=== PATIENT | female | born 2005 | race Caucasian/White ===

== ENCOUNTER 2024-04-23 22:00 | Inpatient (IN) | payer MEDICAID ==
[2024-04-23 22:18] VITALS: BMI 28.3
[2024-04-23] MEDS ORDERED: Lidocaine 1% (PF) 30 ML VIAL SC PRN (22:24)
[2024-04-23] MEDS ORDERED: Promethazine HCl 25 MG/ML VIAL IM PRN (22:24)
[2024-04-23] MEDS ORDERED: hydrALAZINE 20 MG/ML VIAL SLOW IVP PRN (22:24)
[2024-04-23] MEDS ORDERED: fentaNYL 50 mcg/mL 1 mL Vial SLOW IVP PRN (22:24)
[2024-04-23] MEDS ORDERED: Ondansetron PF 4 MG/2 ML Vial IVP PRN (22:24)
[2024-04-23] MEDS ORDERED: Acetaminophen 500 MG TAB PO PRN (22:24)
[2024-04-23] MEDS ORDERED: Oxytocin 30 units/NS 500 ML 500 ML IV SCH (22:30)
[2024-04-23 23:17] LABS: Hematocrit 25.9 % (34.9-44.5); Hemoglobin 8.1 g/dL (12.0-15.5); Mean Corpuscular HGB CONC 31.3 g/dL (32.0-36.0); Mean Corpuscular Hemoglobin 23.6 pg (27.0-33.0); Mean Corpuscular Volume 75.5 fL (81.6-98.3); Mean Platelet Volume 9.4 fL (7.4-10.4); Platelet Count 308 10x3/uL (150-450); RBC Distribution Width 18.7 % (11.5-14.5); Red Blood Cell (RBC) Count 3.43 10x6/uL (3.90-5.03); White Blood Cell (WBC) Count 7.5 10x3/uL (3.5-10.5)
[2024-04-23 23:47] LABS: HBsAg Index 0.24 S/CO (0-0.99); Hep B Surf Ag - L&D Non-Reactive S/CO (NonReactive)
[2024-04-23 23:48] LABS: Syphilis Antibody Nonreactive (Nonreactive); Syphilis Antibody Index 0.03 S/CO (<1.00 Non-Reactive)
[2024-04-23] MEDS: Misoprostol 100 MCG TAB VAG SCH (23:50)
[2024-04-24] LABS: Bilirubin Neg (Negative); Blood, Urine Negative (Negative); Clarity Clear (Clear); Glucose, Urine (Dipstick) Normal (Negative); Ketone, Urine Negative (Negative); Leukocyte Negative (Negative); Nitrite Negative (Negative); Protein, Urine (Dipstick) 15 mg/dl (Neg-Trace); Urobilinogen Normal mg/dL (Less than 2)
[2024-04-24 00:11] LABS: Amphetamine Not Detected (NotDetected); Barbiturates Screen Not Detected (NotDetected); Benzodiazepine Screen Not Detected (NotDetected); Cocaine Metabolite Screen Not Detected (NotDetected); Methadone Not Detected (NotDetected); Methamphetamine Not Detected (NotDetected); Opiate Screen Not Detected (NotDetected); Oxycodone Screen Not Detected (NotDetected); Phencyclidine (PCP) Not Detected (NotDetected); THC/Cannabinoid Screen Not Detected (NotDetected); Tricyclic Screen Not Detected (NotDetected)
[2024-04-24 00:14] LABS: Bacteria/HPF 2+ HPF (None Seen); RBC/HPF 0-3 HPF (0-3); Squamous Epithelial 0-3 HPF (0-3); WBC/HPF 0-3 HPF (0-3)
[2024-04-24 07:09] LABS: HIV (1/2) Antibody/Antigen Non-Reactive (NonReactive); HIV 1/2 INDEX 0.04 S/CO (<1.00)
[2024-04-24] MEDS ORDERED: Misoprostol 100 MCG TAB VAG SCH (10:00)
[2024-04-24] MEDS: fentaNYL 50 mcg/mL 1 mL Vial SLOW IVP PRN (16:18)
[2024-04-24] MEDS: Penicillin G Potassium 5 MILL.UNITS in Sodium Chloride 0.9% 100 ML IVPB SCH (16:18)
[2024-04-24] MEDS: fentaNYL/Ropivacaine Epidural 100 ML ONE (18:56)
[2024-04-24] MEDS ORDERED: Lactated Ringer's 500 ML IV PRN (20:17)
[2024-04-24] MEDS ORDERED: Naloxone HCl 0.4 mg/ml Vial IVP PRN ×2 (20:17)
[2024-04-24] MEDS ORDERED: Promethazine HCl 25 MG/ML VIAL IM PRN (20:17)
[2024-04-24] MEDS ORDERED: Moisturizing Cream (Eucerin) 113 GM JAR TOP PRN (20:17)
[2024-04-24] MEDS ORDERED: diphenhydrAMINE 50 MG/ML VIAL IVP PRN (20:17)
[2024-04-24] MEDS ORDERED: Ondansetron PF 4 MG/2 ML Vial IVP PRN (20:17)
[2024-04-24] MEDS ORDERED: Acetaminophen 325 MG TAB PO PRN (20:17)
[2024-04-24] MEDS ORDERED: ePHEDrine Sulfate 50 MG/10 ML VIAL SLOW IVP PRN (20:17)
[2024-04-24] MEDS ORDERED: Communication Order-Pharmacy FS SCH (20:30)
[2024-04-24] MEDS ORDERED: fentaNYL 2 mcg/Ropivacaine 0.2% Epidural 100 ML CADD EPIDURAL SCH (20:30)
[2024-04-24] MEDS: Lactated Ringer's 1,000 ML IV SCH (20:35)
[2024-04-24] MEDS: Penicillin G 2.5 MILL.units 2.5 MILL.UNITS in Premix 1 BAG IVPB SCH (20:35)
[2024-04-24] MEDS: Oxytocin 30 units/NS 500 ML 500 ML IV SCH (23:09)
[2024-04-25] MEDS ORDERED: Bicitra 30 ML UDCUP PO PRN (05:11)
[2024-04-25] MEDS ORDERED: Famotidine/PF 20 mg/2ml Vial SLOW IVP PRN (05:11)
[2024-04-25] MEDS ORDERED: CEFAZOLIN 2 GM in Sodium Chloride 0.9% 100 ML IVPB SCH (05:30)
[2024-04-25] MEDS ORDERED: Azithromycin 500 MG in Sodium Chloride 0.9% 250 ML 250 ML IVPB SCH (05:30)
[2024-04-25] MEDS ORDERED: Simethicone Chewable 80 MG TAB PO PRN (06:18)
[2024-04-25] MEDS ORDERED: Boostrix 0.5 ML (Tdap) VIAL (>/=7 yrs of age) IM ONE (06:18)
[2024-04-25] MEDS ORDERED: Lanolin Ointment 7 GM TUBE TOP PRN (06:18)
[2024-04-25] MEDS ORDERED: diphenhydrAMINE 25 MG CAP PO PRN (06:18)
[2024-04-25] MEDS ORDERED: Zolpidem Tartrate 5 MG TAB PO PRN (06:18)
[2024-04-25] MEDS ORDERED: Misoprostol 200 MCG TAB PR PRN (06:18)
[2024-04-25] MEDS ORDERED: Methylergonovine 0.2 MG/ML VIAL IM PRN (06:18)
[2024-04-25] MEDS ORDERED: hydrALAZINE 20 MG/ML VIAL SLOW IVP PRN (06:18)
[2024-04-25 07:42] LABS: Analyzer IN Cardio CS NICU; Critical Notified Whom: Roman MD; RapidComm Collect By LD RN; pH (Cord, venous) 7.305 (7.250-7.350)
[2024-04-25] MEDS: Azithromycin 500 MG VIAL ONE (07:53)
[2024-04-25] MEDS: Misoprostol 200 MCG TAB ONE (07:53)
[2024-04-25] MEDS: CEFAZOLIN 2 GM VIAL ONE (07:53)
[2024-04-25] MEDS: Carboprost 250 MCG/ML AMP ONE (07:54)
[2024-04-25] MEDS: Morphine PF 10 MG/10 ML VIAL ONE (07:54)
[2024-04-25] MEDS: Methylergonovine 0.2 MG/ML VIAL ONE (07:54)
[2024-04-25] MEDS: Promethazine HCl 25 MG/ML VIAL ONE (07:54)
[2024-04-25] MEDS: Tranexamic Acid 1,000 MG/10 ML VIAL ONE (07:54)
[2024-04-25] MEDS: Ondansetron PF 4 MG/2 ML Vial ONE (07:54)
[2024-04-25] MEDS: fentaNYL 50 mcg/mL 1 mL Vial ONE (07:54)
[2024-04-25] MEDS: Oxytocin 10 UNITS/ML VIAL ONE ×2 (07:54→07:55)
[2024-04-25 08:19] LABS: Hematocrit 24.9 % (34.9-44.5); Hemoglobin 7.7 g/dL (12.0-15.5); Mean Corpuscular HGB CONC 30.9 g/dL (32.0-36.0); Mean Corpuscular Hemoglobin 24.2 pg (27.0-33.0); Mean Corpuscular Volume 78.3 fL (81.6-98.3); Mean Platelet Volume 9.6 fL (7.4-10.4); Platelet Count 277 10x3/uL (150-450); RBC Distribution Width 18.6 % (11.5-14.5); Red Blood Cell (RBC) Count 3.18 10x6/uL (3.90-5.03); White Blood Cell (WBC) Count 25.2 10x3/uL (3.5-10.5)
[2024-04-25 08:23] LABS: MDiff Complete? YES
[2024-04-25 08:54] LABS: Band 3 % (5-11); Lymphocytes 5 % (28-48); Monocytes 8 % (0-4); Neutrophil 84 % (31-61)
[2024-04-25 08:56] LABS: Anisocytosis SLIGHT = 6-15 cells (100X) (0-5/hpf); Hypochromia SLIGHT = 6-15 cells (100X) (0-5/hpf); Microcytosis SLIGHT = 6-15 cells (100X) (0-5/hpf); Platelet Adequacy Comment Appears Adequate; Polychromasia SLIGHT = 2-3 cells (100X) (0-2/hpf)
[2024-04-25] MEDS: Ferrous Sulfate 325 MG TAB PO SCH (09:00)
[2024-04-25] MEDS: Docusate 100 MG CAP PO SCH (09:00)
[2024-04-25] MEDS: Ketorolac Tromethamine 30 MG (1 mL) VIAL IVP SCH ×2 (13:52→20:00)
[2024-04-25] MEDS ORDERED: Bupivacaine HCl 0.5%/Epinephrine 1:200,000/PF 30 ml Vial ONE (15:00)
[2024-04-26 06:30] LABS: #Basophils 0.04 10x3/uL (0.0-0.2); #Eosinphils 0.08 10x3/uL (0.0-0.5); #Monocytes 1.11 10x3/uL (0.0-1.1); #Neutrophils 11.09 10x3/uL (1.5-8.4); %Basophils 0.3 % (0.0-2.0); %Eosinophils 0.6 % (0.0-6.0); %Lymphocytes 11.5 % (18.0-47.0); %Monocytes 7.9 % (0.0-10.0); %Neutrophils 78.4 % (40.0-75.0); Hematocrit 19.3 % (34.9-44.5); Hemoglobin 6.1 g/dL (12.0-15.5); Mean Corpuscular HGB CONC 31.6 g/dL (32.0-36.0); Mean Corpuscular Hemoglobin 24.4 pg (27.0-33.0); Mean Corpuscular Volume 77.2 fL (81.6-98.3); Mean Platelet Volume 8.9 fL (7.4-10.4); Platelet Count 207 10x3/uL (150-450); RBC Distribution Width 18.9 % (11.5-14.5); White Blood Cell (WBC) Count 14.1 10x3/uL (3.5-10.5)
[2024-04-26] MEDS: Ibuprofen 800 MG TAB PO SCH (11:02)
[2024-04-26 20:52] LABS: #Basophils 0.07 10x3/uL (0.0-0.2); #Eosinphils 0.21 10x3/uL (0.0-0.5); #Monocytes 0.78 10x3/uL (0.0-1.1); #Neutrophils 13.28 10x3/uL (1.5-8.4); %Basophils 0.4 % (0.0-2.0); %Eosinophils 1.3 % (0.0-6.0); %Lymphocytes 7.7 % (18.0-47.0); %Monocytes 4.9 % (0.0-10.0); %Neutrophils 84.1 % (40.0-75.0); Hematocrit 26.5 % (34.9-44.5); Hemoglobin 8.5 g/dL (12.0-15.5); Mean Corpuscular HGB CONC 32.1 g/dL (32.0-36.0); Mean Corpuscular Hemoglobin 24.2 pg (27.0-33.0); Mean Corpuscular Volume 75.5 fL (81.6-98.3); Mean Platelet Volume 9.1 fL (7.4-10.4); Platelet Count 298 10x3/uL (150-450); Red Blood Cell (RBC) Count 3.51 10x6/uL (3.90-5.03); White Blood Cell (WBC) Count 15.8 10x3/uL (3.5-10.5)
[2024-04-26] MEDS: HYDROcodone/Acetaminophen 5/325 mg Tablet PO PRN (22:42)
[2024-04-27 07:21] LABS: #Basophils 0.04 10x3/uL (0.0-0.2); #Eosinphils 0.32 10x3/uL (0.0-0.5); #Monocytes 0.88 10x3/uL (0.0-1.1); #Neutrophils 9.53 10x3/uL (1.5-8.4); %Basophils 0.3 % (0.0-2.0); %Eosinophils 2.5 % (0.0-6.0); %Lymphocytes 14.5 % (18.0-47.0); %Monocytes 6.9 % (0.0-10.0); %Neutrophils 74.2 % (40.0-75.0); Hematocrit 23.4 % (34.9-44.5); Hemoglobin 7.3 g/dL (12.0-15.5); Mean Corpuscular HGB CONC 31.2 g/dL (32.0-36.0); Mean Corpuscular Hemoglobin 24.1 pg (27.0-33.0); Mean Corpuscular Volume 77.2 fL (81.6-98.3); Mean Platelet Volume 9.2 fL (7.4-10.4); Platelet Count 239 10x3/uL (150-450); RBC Distribution Width 19.2 % (11.5-14.5); Red Blood Cell (RBC) Count 3.03 10x6/uL (3.90-5.03); White Blood Cell (WBC) Count 12.8 10x3/uL (3.5-10.5)
[2024-04-27 08:38] VITALS: BP 97/51; TEMP 98.5
[2024-04-27 09:56] LABS: #Basophils 0.06 10x3/uL (0.0-0.2); #Eosinphils 0.32 10x3/uL (0.0-0.5); #Monocytes 0.79 10x3/uL (0.0-1.1); #Neutrophils 9.68 10x3/uL (1.5-8.4); %Basophils 0.5 % (0.0-2.0); %Eosinophils 2.6 % (0.0-6.0); %Monocytes 6.3 % (0.0-10.0); %Neutrophils 77.3 % (40.0-75.0); Hematocrit 23.4 % (34.9-44.5); Hemoglobin 7.4 g/dL (12.0-15.5); Mean Corpuscular HGB CONC 31.6 g/dL (32.0-36.0); Mean Corpuscular Hemoglobin 24.3 pg (27.0-33.0); Mean Corpuscular Volume 76.7 fL (81.6-98.3); Mean Platelet Volume 9.5 fL (7.4-10.4); Platelet Count 262 10x3/uL (150-450); RBC Distribution Width 19.2 % (11.5-14.5); Red Blood Cell (RBC) Count 3.05 10x6/uL (3.90-5.03); White Blood Cell (WBC) Count 12.5 10x3/uL (3.5-10.5)
== END 2024-04-27 11:40 | disposition home or self-care (01) | DRG 787 ==
LOC: CSHLD/OP 22:00 → CSHLD 22:36 → CSHPP 04-25 09:30
PROVIDERS: ADMIT Obstetrics & Gynecology; ATTEND Obstetrics & Gynecology
PROC: 10907ZC Drainage of Amniotic Fluid, Therapeutic from Products of Conception, Via Natural or Artificial Opening (ICD-10-PCS; 2024-04-24)
PROC: 10D00Z1 Extraction of Products of Conception, Low, Open Approach (ICD-10-PCS; principal; 2024-04-25)
DX: O48.0 Post-term pregnancy (principal); D62 Acute posthemorrhagic anemia; O99.02 Anemia complicating childbirth; Z3A.40 40 weeks gestation of pregnancy; Z37.0 Single live birth; O76 Abnormality in fetal heart rate and rhythm complicating labor and delivery; O64.0XX0 Obstructed labor due to incomplete rotation of fetal head, not applicable or unspecified
CPT/HCPCS: 36415; 36430; 51702; 80306; 81001; 82805; 85025; 85027; 85461; 86762; 86780; 86850; 86900; 86901; 87340; 87389; 90384; 96372; 99285; J1885; J2274; J2405; J2540; J2550; J2590; J3010; J7120; P9016